=== PATIENT | female | born 1965 | race Caucasian/White ===

== ENCOUNTER 2018-10-15 10:37 | Emergency (ER) | payer BC, MEDICARE, MEDICAID ==
[2008-07-14 16:52] VITALS: BP 111/72
[~2018-10-15] VITALS: Ht 165.1 cm; Wt 81.8 kg
[2018-10-15 10:37] VITALS: TEMP 97.9
[~2018-10-15 10:37] MED LIST: ALEVE; AMBIEN 10MG10 MG PO; AMITRIPTYLINE H25 M1 PO; ASACOL; CIPRO 500MG TA500 MG PO; COUMADIN 6MG6 MG/TAB PO; CYCLOBENZAPRINE5 M1 PO; FLAX SEED OIL1000 MG PO; GABAPENTIN300 M1 PO; MOBIC15 MG PO; OXYCODONE HCL5 MG PO; PENTASA500 MG PO; PREDNISONE 5MG5 MG PO; REQUIP 0.5MG0.5 MG PO; SEROQUEL100 MG PO; THERAGRAN1 TA1 PO; TRAMADOL50 MG PO; TYLENOL 325MG325 MG PO; VITAMIN B COMPL1 SGL PO; XANAX .25M0.25 MG/TA PO; [UNRECOGNIZED DRUG - REMARK]
[2018-10-15] MEDS ORDERED: GNC NAC 600600 MG PO (10:55)
[2018-10-15] MEDS ORDERED: HUMIRA40 MG/0.8 SQ (10:56)
[2018-10-15] MEDS ORDERED: IMURAN 50MG TAB50 MG PO (10:57)
[2018-10-15] MEDS ORDERED: ESTRACE 1MG1 MG/TAB PO (10:58)
[2018-10-15] MEDS ORDERED: FLAXSEED OIL1000 MG PO (10:58)
[2018-10-15] MEDS ORDERED: CLARITIN 1010 MG/TAB PO (10:59)
[2018-10-15] MEDS ORDERED: FISH OIL 1000MG1 CAP PO (11:00)
[2018-10-15] MEDS ORDERED: MULTIPLE VITAMI1 CAP PO (11:00)
[2018-10-15 11:54] LABS: BASO # 0.1 (0.0-0.2); BASO % 0.6 % (0.0-2.0); EOS # 0.1 (0.0-0.7); EOS % 1.3 % (0-4.0); GRAN # 7.9 (1.4-6.5); GRAN % 79.1 % (42.2-75.2); HEMATOCRIT 39.5 % (37.0-47.0); LYMPH # 1.2 (1.2-3.4); LYMPH % 12.4 % (20.0-51.0); MEAN CELL VOLUME 93 fl (80.0-100.0); MEAN CORPUSCULAR HEMOGLOBIN 30 pg (27.0-31.0); MEAN CORPUSCULAR HGB CONC 33 g/dl (33.0-37.0); MEAN PLATELET VOLUME 9.1 fl (7.4-10.4); MONO # 0.6 (0.1-0.6); PLATELET COUNT 307 K/mm3 (130-400); RED BLOOD COUNT 4.27 M/mm3 (4.10-5.30); REDCELL DISTRIBUTION WIDTH-CV 13.3 % (11.5-14.5)
[2018-10-15 11:59] LABS: PARTIAL THROMBOPLASTIN TIME 33.9 SECONDS (26.0-37.0)
[2018-10-15 12:01] LABS: INR 0.9 (0.8-3.0); PROTHROMBIN TIME 10.3 SECONDS (9.7-12.8)
[2018-10-15 12:07] LABS: ALANINE AMINOTRANSFERASE 16 U/L (9-52); ALBUMIN 4.6 gm/dL (3.5-5.0); ALKALINE PHOSPHATASE 78 U/L (50-136); ANION GAP 9 mmol/L (7-16); AST,SGOT 31 U/L (15-37); BILIRUBIN,TOTAL 0.6 mg/dL (0.0-1.0); BLOOD UREA NITROGEN 14 mg/dL (7-17); C-REACTIVE PROTEIN 0.6 mg/dL (0.0-0.9); CALCIUM 9.3 mg/dL (8.4-10.2); CARBON DIOXIDE 27 mmol/L (22-30); CHLORIDE 105 mmol/L (98-107); CREATININE, serum 0.85 mg/dL (0.52-1.25); GLUCOSE 108 mg/dL (74-106); LIPASE 92 U/L (23-300); POTASSIUM 3.7 mmol/L (3.4-5.0); SODIUM 141 mmol/L (137-145); TOTAL PROTEIN 8.8 gm/dL (6.4-8.2)
[2018-10-15 12:18] LABS: TROPONIN-I < 0.012 ng/mL (0.000-0.034)
[2018-10-15 16:58] VITALS: BP 169/103; PULSE 107
== END 2018-10-15 17:17 | disposition short-term general hospital (02) ==
LOC: COL.ER 10:37
PROVIDERS: Emergency Medicine
DX: K76.9 Liver disease, unspecified (principal); K50.90 Crohn's disease, unspecified, without complications; Z90.710 Acquired absence of both cervix and uterus
CPT/HCPCS: C9113; J1170; J2405; J2930; Q9967

== ENCOUNTER 2021-03-10 21:23 | Observation (INO) | payer MEDICARE, MEDICAID ==
[~2021-03-10] VITALS: Ht 165.1 cm; Wt 111.8 kg
[~2021-03-10 21:23] MED LIST changes: +CLARITIN 1010 MG/TAB PO; +ESTRACE 1MG1 MG/TAB PO; +FISH OIL 1000MG1 CAP PO; +FLAXSEED OIL1000 MG PO; +GNC NAC 600600 MG PO; +HUMIRA40 MG/0.8 SQ; +IMURAN 50MG TAB50 MG PO; +MULTIPLE VITAMI1 CAP PO
[2021-03-10 21:53] LABS: BASO % 0.5 % (0.0-2.0); EOS # 0.2 (0.0-0.7); EOS % 2.1 % (0-4.0); GRAN # 4.4 (1.4-6.5); GRAN % 55.3 % (42.2-75.2); HEMATOCRIT 42.6 % (37.0-47.0); LYMPH # 2.6 (1.2-3.4); MEAN CELL VOLUME 94 fl (80.0-100.0); MEAN CORPUSCULAR HEMOGLOBIN 31 pg (27.0-31.0); MEAN CORPUSCULAR HGB CONC 33 g/dl (33.0-37.0); MEAN PLATELET VOLUME 9.6 fl (7.4-10.4); MONO # 0.8 (0.1-0.6); MONO % 9.6 % (1.7-9.3); PLATELET COUNT 343 K/mm3 (130-400); RED BLOOD COUNT 4.53 M/mm3 (4.10-5.30); REDCELL DISTRIBUTION WIDTH-CV 13.2 % (11.5-14.5)
[2021-03-10 22:10] LABS: ALBUMIN 5.1 gm/dL (3.5-5.0); BILIRUBIN,TOTAL 0.9 mg/dL (0.0-1.0); CALCIUM 10.3 mg/dL (8.4-10.2); CREATININE, serum 1.08 (0.52-1.25); POTASSIUM 3.6 mmol/L (3.4-5.0); TOTAL PROTEIN 9.6 gm/dL (6.4-8.2)
[2021-03-10] MEDS ORDERED: NEURONTIN300 MG/CAP PO (23:56)
[2021-03-10] MEDS ORDERED: ASPIRIN 81M81 MG/TA2 PO (23:57)
[2021-03-10] MEDS ORDERED: EFFEXOR XR37.5 MG/CA PO (23:57)
[2021-03-10] MEDS ORDERED: LIPITOR20 MG PO (23:58)
[2021-03-10] MEDS ORDERED: MITIGARE0.6 MG PO (23:58)
[2021-03-10] MEDS ORDERED: IMURAN 50MG TAB50 MG PO (23:59)
[2021-03-11] MEDS ORDERED: LOPRESSOR 225 MG/TAB PO (00:01)
[2021-03-11] MEDS ORDERED: PLAVIX 75MG TAB75 MG PO (00:01)
[2021-03-11] MEDS ORDERED: PENTASA500 MG PO (00:02)
[2021-03-11] MEDS ORDERED: ZYRTEC 10MG10 MG PO (00:03)
--- NOTE | 2021-03-11 00:34 | NUR ---
PT ARRIVES VIA CART TO ROOM 324. AMBULATES FROM CART TO BATHROOM, TO EMPTY HER ILEOSTOMY, WHICH IS FULL AT THIS TIME.
[2021-03-11 00:47] VITALS: BP 121/74; PULSE 101; TEMP 98.3
--- NOTE | 2021-03-11 01:11 | NUR ---
ADMISSION QUESTIONS COMPLETE. IVF INFUSING TO RT AC WITHOUT PROBLEM. DILAUDID 0.25MG IVP GIVEN FOR LOWER ABD CRAMPING. READY FOR BED.
[2021-03-11 04:15] VITALS: BP 100/63; PULSE 95; TEMP 98
--- NOTE | 2021-03-11 04:25 | NUR ---
OFFERS NO REQUEST FOR PAIN MEDS AT THIS TIME.
--- NOTE | 2021-03-11 05:58 | NUR ---
PT REPORTS PAIN 8/10 TO LEFT LOWER ABD. DILAUDID 0.25MG IVP GIVEN AT THIS TIME.
[2021-03-11 07:05] LABS: CALCIUM 9.3 mg/dL (8.4-10.2); CREATININE, serum 0.92 (0.52-1.25); POTASSIUM 3.8 mmol/L (3.4-5.0)
[2021-03-11 07:25] VITALS: BP 102/59; PULSE 84; TEMP 98.5
--- NOTE | 2021-03-11 09:03 | NUR ---
UPON ENTRY TO ROOM THE PATIENT IS ASLEEP IN BED. PATIENT AROUSES EASILY TO NAME. SHIFT ASSESSMENT COMPLETED AT THIS TIME. MORNING MEDICATIONS ADMINISTERED. PATIENT BOWEL SOUNDS HYPOACTIVE. ABDOMEN SOFT UPON PALPATION. ILEOSTOMY TO ABDOMINAL RLQ. OSTOMY APPLIANCE IS CD&I. PATIENT REPORTS GAS PRESENT IN ILEOSTOMY BAG. PATIENT DENIES COMPLAINTS OF NAUSEA. PATIENT REPORTING PAIN IN RLQ BELOW ILEOSTOMY SITE. PATIENT CURRENTLY RATING HER PAIN A 6/10 ON A 0-10 SCALE, PATIENT STATES ITS AN INTERMITTENT CRAMPING PAIN. FAMILY TO BRING PATIENTS BELONGINGS FOR HER TO SHOWER AND DO APPLIANCE CHANGE. PATIENT EDUCATED ON THE NEED TO AMBULATE THROUGHOUT THE SHIFT. PATIENT AGREEABLE TO WALK LATER. PATIENT STATES THAT SHE DID NOT SLEEP WELL, AND WOULD LIKE TO SLEEP A BIT LONGER. ROUNDED IN ROOM WHILE THIS NURSE WAS PRESENT. CALL LIGHT WITHIN REACH. PATIENT DENIES ADDITIONAL NEEDS AT THIS TIME.
[2021-03-11 11:48] VITALS: BP 89/55; BP 98/62; PULSE 79; TEMP 97.9
--- NOTE | 2021-03-11 13:18 | NUR ---
SW met with patient to complete intake. Patient states that she lives in [facility]. Patient POC is daughter Latesha [phone]. She states that she does not utilize DME and is independent with ADL's, PCP is Dr. Lazcano, and pharmacy is [facility]. Patient also states that she is able to afford her medications. Patient provides that she does not have anyone appointed as her DPOA-HC and does not want to appoint anyone at this time. Patient states that she plans to go back to her home in [place] up on DC. SW will continue to follow.
[2021-03-11 16:25] VITALS: BP 142/70; PULSE 88; TEMP 98.2
--- NOTE | 2021-03-11 16:30 | NUR ---
NOTIFIED THAT THE PATIENT IS COMPLAINING OF SEVERE FIBROMYALGIA PAIN IN HER BACK AND HANDS. PATIENT TYPICALLY TAKES TYLENOL ARTHRITIS FOR HER FIBROMYALGIA PAIN. VORB FOR PATIENT TO TAKE HOME TYLENOL FROM TO THIS NURSE.
[2021-03-11] MEDS ORDERED: TYLENOL 8 HR PO (16:34)
--- NOTE | 2021-03-11 18:56 | NUR ---
REPORT GIVEN TO ELLIS FOREMAN.
[2021-03-11 20:34] VITALS: BP 129/82; PULSE 82; TEMP 98.1
[2021-03-12 00:51] VITALS: BP 104/56; PULSE 84; TEMP 98
[2021-03-12 04:51] VITALS: BP 103/58; PULSE 86; TEMP 98.2
[2021-03-12 06:18] LABS: BASO % 0.6 % (0.0-2.0); EOS # 0.2 (0.0-0.7); EOS % 3.5 % (0-4.0); GRAN # 2.5 (1.4-6.5); GRAN % 48.3 % (42.2-75.2); LYMPH # 1.8 (1.2-3.4); LYMPH % 34.1 % (20.0-51.0); MEAN CELL VOLUME 98 fl (80.0-100.0); MEAN CORPUSCULAR HGB CONC 33 g/dl (33.0-37.0); MEAN PLATELET VOLUME 9.5 fl (7.4-10.4); MONO # 0.7 (0.1-0.6); MONO % 13.1 % (1.7-9.3); PLATELET COUNT 259 K/mm3 (130-400); RED BLOOD COUNT 3.71 M/mm3 (4.10-5.30); REDCELL DISTRIBUTION WIDTH-CV 13.3 % (11.5-14.5)
[2021-03-12 06:39] LABS: HEMATOCRIT 36.3 % (37.0-47.0); HEMOGLOBIN 11.8 g/dl (12.5-16.0); MEAN CORPUSCULAR HEMOGLOBIN 32 pg (27.0-31.0)
[2021-03-12 06:44] LABS: CALCIUM 8.7 mg/dL (8.4-10.2); CREATININE, serum 0.85 (0.52-1.25); POTASSIUM 3.7 mmol/L (3.4-5.0)
[2021-03-12 07:38] VITALS: BP 114/60; PULSE 87; TEMP 98.1
--- NOTE | 2021-03-12 08:00 | NUR ---
Patient sitting up in bed eating breakfast. Alert and oriented x3. Assessment complete. Denies pain at this time. IV to right AC with fluids infusing per orders. Ostomy with output and gas noted. Denies further needs at this time.
--- NOTE | 2021-03-12 11:10 | NUR ---
Patient tolerating diet without difficulties, states she is ready to discharge. Denies pain or further needs at this time. Discharge education provided to patient. Educated on when to call provider and follow up appointment.All questions answered. INT to RAC discontinued, catheter tip intact. Patient ambulated out with surgical staff.
== END 2021-03-12 11:10 | disposition home or self-care (01) ==
LOC: COL.ER 21:23 → SURG 23:45
PROVIDERS: Emergency Medicine; Nurse Practitioner Family; ADMIT Student in an Organized Health Care Education/Training Program
DX: K56.600 Partial intestinal obstruction, unspecified as to cause (principal); K50.90 Crohn's disease, unspecified, without complications; M35.2 Behcet's disease; K76.0 Fatty (change of) liver, not elsewhere classified; N28.1 Cyst of kidney, acquired; Q63.1 Lobulated, fused and horseshoe kidney; I10 Essential (primary) hypertension; E78.5 Hyperlipidemia, unspecified; E66.01 Morbid (severe) obesity due to excess calories; N30.10 Interstitial cystitis (chronic) without hematuria; I72.8 Aneurysm of other specified arteries; M79.7 Fibromyalgia; Z88.8 Allergy status to other drugs, medicaments and biological substances; Z91.048 Other nonmedicinal substance allergy status; Z79.82 Long term (current) use of aspirin; Z79.899 Other long term (current) drug therapy; Z90.49 Acquired absence of other specified parts of digestive tract; Z90.89 Acquired absence of other organs; Z93.2 Ileostomy status; Z90.710 Acquired absence of both cervix and uterus; Z86.718 Personal history of other venous thrombosis and embolism; Z80.42 Family history of malignant neoplasm of prostate; Z80.0 Family history of malignant neoplasm of digestive organs
CPT/HCPCS: 99223-AI; 99233-AI; 99239; A9270-GY; G0378; J1170; J2405; J3010; J7030; J7500; Q9967

== ENCOUNTER 2021-07-08 00:42 | Observation (INO) | payer MEDICARE, MEDICAID ==
[~2021-07-08] VITALS: Ht 165.1 cm; Wt 113.6 kg
[~2021-07-08 00:42] MED LIST changes: +ASPIRIN 81M81 MG/TA2 PO; +EFFEXOR XR37.5 MG/CA PO; +LIPITOR20 MG PO; +LOPRESSOR 225 MG/TAB PO; +MITIGARE0.6 MG PO; +NEURONTIN300 MG/CAP PO; +PLAVIX 75MG TAB75 MG PO; +TYLENOL 8 HR PO; +ZYRTEC 10MG10 MG PO
[2021-07-08 01:14] LABS: BASO # 0.1 (0.0-0.2); BASO % 0.6 % (0.0-2.0); EOS # 0.2 (0.0-0.7); EOS % 1.9 % (0-4.0); GRAN # 5.7 (1.4-6.5); GRAN % 57.9 % (42.2-75.2); HEMATOCRIT 42.4 % (37.0-47.0); HEMOGLOBIN 14.3 g/dl (12.5-16.0); LYMPH % 30.2 % (20.0-51.0); MEAN CELL VOLUME 95 fl (80.0-100.0); MEAN CORPUSCULAR HEMOGLOBIN 32 pg (27.0-31.0); MEAN CORPUSCULAR HGB CONC 34 g/dl (33.0-37.0); MEAN PLATELET VOLUME 9.5 fl (7.4-10.4); MONO # 0.9 (0.1-0.6); MONO % 8.9 % (1.7-9.3); PLATELET COUNT 334 K/mm3 (130-400); RED BLOOD COUNT 4.45 M/mm3 (4.10-5.30); REDCELL DISTRIBUTION WIDTH-CV 13.3 % (11.5-14.5)
[2021-07-08 01:24] LABS: ALBUMIN 5.2 gm/dL (3.5-5.0); BILIRUBIN,TOTAL 0.9 mg/dL (0.0-1.0); CALCIUM 10.4 mg/dL (8.4-10.2); CREATININE, serum 1.14 (0.52-1.25); POTASSIUM 3.9 mmol/L (3.4-5.0); TOTAL PROTEIN 9.4 gm/dL (6.4-8.2)
--- NOTE | 2021-07-08 04:36 | NUR ---
ADMITTED TO ROOM 329 PER BED. PT HAVING ABD PAIN. NO NAUSEA. ILEOSTOMY DRAININ SOME STOOL IN BAG. HYPOACTIVE BOWELSOUNDS. ORIENTED TO ROOM. CALL LIGHT IN REACH.
[2021-07-08 04:44] VITALS: BP 122/75; PULSE 83; TEMP 98.1
--- NOTE | 2021-07-08 06:16 | NUR ---
300cc OF GREENISH STOOL FROM ILEOSTOMY THIS AM. RESTING WELL.
[2021-07-08 06:42] VITALS: BP 108/65; PULSE 72; TEMP 98.4
[2021-07-08 12:00] VITALS: BP 110/65; PULSE 81; TEMP 98.7
[2021-07-08 16:00] VITALS: BP 112/63; PULSE 96; TEMP 98.5
--- NOTE | 2021-07-08 20:00 | NUR ---
PATIENT IS ALERT AND ORIENTED X4. SITTING UP IN BED. PATIENT HAS RIGHT AC IV INFUSING NS AT 125ML. NO REDNESS OR EDEMA. PATIENT HAS OSTOMY TO RIGHT SIDE AND DOES MOST OSTOMY CARE HERSELF. PATIENT IS TO ADVANCE DIET TO FULLS TOLERATED. PATIENT GIVEN TYLENOL PER ORDERS FOR HEADACHE AND BENEDRYL PER ORDERS FOR ITCHING DUE TO ADHESIVE AROUND IV. PATIENT IS INDEPENDENT IN ROOM AND SET TO DISCHARGE TOMORROW. PATIENT DENIES FURTHER NEEDS AT THIS TIME. CALL LIGHT WITHIN REACH. HEAD TO TOE ASSESSMENT COMPLETE.
[2021-07-08 20:29] VITALS: BP 116/78; PULSE 95; TEMP 98.9
[2021-07-09] VITALS: BP 122/63; PULSE 81; TEMP 98.5
[2021-07-09 02:02] VITALS: BP 167/82; PULSE 77; TEMP 98.1
[2021-07-09 04:00] VITALS: BP 138/77; PULSE 83; TEMP 99.6
--- NOTE | 2021-07-09 06:11 | NUR ---
PATIENT COMPLAINED OF HEADACHE THROUGHOUT NIGHT. PATIENT SLEEPING MOST TIMES WHEN CHECKED ON, GIVEN TYLENOL PER ORDERS. NO FURTHER NEEDS AT THIS TIME. CALL LIGHT WITHIN REAC. WILL REPORT TO DAYSHIFT.
--- NOTE | 2021-07-09 08:00 | NUR ---
PATIENT IS A&O. NOTED LOW GRADE TEMP OF 99.6, PATIENT JUST WOKE UP AND IS ALL BUNDLED UP IN HER COVERS. ALL OTHER VSS. NO COMPLAINTS. OSTOMY WITH STOOL & GAS NOTED. NO C/O NAUSEA. AM MEDS GIVEN. HEAD TO TOE ASSESSMENT WNL. PATIENT WAITING FOR DOCTOR TO ROUND AND WILL LIKELY DISCHARGE LATER TODAY. PATIENT TALKING ON PHONE. NO OTHER NEEDS. CALL LIGHT IN REACH. INDEPENDENT IN ROOM.
[2021-07-09 08:08] LABS: ALBUMIN 4.2 gm/dL (3.5-5.0); BILIRUBIN,TOTAL 1.2 mg/dL (0.0-1.0); POTASSIUM 3.5 mmol/L (3.4-5.0); TOTAL PROTEIN 7.4 gm/dL (6.4-8.2)
[2021-07-09 08:32] LABS: BASO # 0.1 (0.0-0.2); BASO % 0.7 % (0.0-2.0); EOS # 0.2 (0.0-0.7); EOS % 2.3 % (0-4.0); GRAN # 4.1 (1.4-6.5); LYMPH # 1.8 (1.2-3.4); LYMPH % 25.9 % (20.0-51.0); MEAN CELL VOLUME 95 fl (80.0-100.0); MEAN CORPUSCULAR HGB CONC 34 g/dl (33.0-37.0); MEAN PLATELET VOLUME 10.1 fl (7.4-10.4); MONO # 0.8 (0.1-0.6); MONO % 11.7 % (1.7-9.3); PLATELET COUNT 236 K/mm3 (130-400); RED BLOOD COUNT 3.55 M/mm3 (4.10-5.30); REDCELL DISTRIBUTION WIDTH-CV 13.2 % (11.5-14.5)
[2021-07-09 08:55] VITALS: BP 113/68; PULSE 72; TEMP 98
[2021-07-09 09:31] LABS: HEMATOCRIT 33.7 % (37.0-47.0); HEMOGLOBIN 11.3 g/dl (12.5-16.0); MEAN CORPUSCULAR HEMOGLOBIN 32 pg (27.0-31.0)
--- NOTE | 2021-07-09 12:00 | NUR ---
PATIENT ASKING NURSING TO LEAVE HER ALONE FOR A WHILE AFTER OBTAINING NOON VITALS SO SHE CAN TAKE A NAP. LIGHTS TURNED DOWN. CALL LIGHT IN REACH. PATIENT INDEPENDENT IN ROOM
[2021-07-09 12:05] VITALS: BP 133/71; PULSE 71; TEMP 98
--- NOTE | 2021-07-09 14:10 | NUR ---
Tiffany met with the pt who stated her preference to return home once medically stable. The pt lives at home. The pt nk is her daughter, Latesha [phone]. the pt is independent on all ADLs and does not use any DME. The pt does not have a DPOA)hc and is not interested in one at this time. The pcp is Dr. Antunez from [place] and gets her medications from [facility]. She has used HH services before from [facility] in [place] and is not interested in using them. No other needs stated at this time. Sw to await further recommendations and follow up as needed. D/c: Home.
[2021-07-09 15:34] VITALS: BP 101/57; PULSE 82; TEMP 98.5
--- NOTE | 2021-07-09 16:00 | NUR ---
PATIENT DISCHARGING HOME VIA AMBULATORY TO PERSONAL VEHICLE. GAVE DISCHARGE INSTRUCTIONS & DISCUSSED F/U APT PRN. ANSWERED QUESTIONS/CONCERNS. DC'D RIGHT AC IV. IV CATH TIP INTACT AND PATIENT TOLERATED WELL. COVERED SITE WITH GAUZE & COBAN. PATIENT IS DRESSED, PACKED AND ESCORTED OUT.
== END 2021-07-09 16:30 | disposition home or self-care (01) ==
LOC: COL.ER 00:42 → SURG 03:02
PROVIDERS: Emergency Medicine; ADMIT Surgery
DX: K56.600 Partial intestinal obstruction, unspecified as to cause (principal); M79.7 Fibromyalgia; K50.90 Crohn's disease, unspecified, without complications; Z90.89 Acquired absence of other organs; Z79.899 Other long term (current) drug therapy; Z79.82 Long term (current) use of aspirin; Z79.02 Long term (current) use of antithrombotics/antiplatelets
CPT/HCPCS: G0378; J1170; J1200; J2405; J7030; Q9967

== ENCOUNTER → 2021-08-17 | Outpatient (CLI) | payer MEDICAID | LOC: COL.RAD 08:21 | DX: I72.6 Aneurysm of vertebral artery (principal); K76.0 Fatty (change of) liver, not elsewhere classified; Z98.890 Other specified postprocedural states | CPT/HCPCS: Q9967 ==